=== PATIENT | male | born 1950 | race Caucasian/White ===

== ENCOUNTER 2018-09-14 13:36 | Outpatient (CLI) | payer MEDICARE, BC ==
[2018-09-14] MEDS ORDERED: CLOP75TA15 PO (23:19)
[2018-09-14] MEDS ORDERED: BENA20TA11 PO (23:22)
[2018-09-15] MEDS ORDERED: GABA-532 PO (10:11)
== END 2018-09-14 23:59 | disposition home or self-care (01) ==
LOC: VAS 13:36
PROVIDERS: ATTEND Surgery
DX: R20.0 Anesthesia of skin (principal); Z95.820 Peripheral vascular angioplasty status with implants and grafts
CPT/HCPCS: 93922; 93931

== ENCOUNTER 2019-02-08 08:27 | Day surgery (SDC) | payer MEDICARE, BC ==
[~2019-02-08] VITALS: Ht 182.9 cm; Wt 87.2 kg
[2019-02-08] VITALS (11 sets, daily range): BP systolic 106–157; BP diastolic 53–96
[~2019-02-08 08:27] MED LIST: BENA20TA11 PO; CLOP75TA15 PO; GABA-532 PO
[2019-02-08] MEDS ORDERED: normal saline 1000ml 1,000 ML IV SCH ×2 (09:05→12:12)
[2019-02-08 09:21] LABS: BASOPHILS % (AUTO) 0.8 % (0-1); EOSINOPHILS % (AUTO) 0.8 % (0-6); HEMATOCRIT 39.5 % (42.0-52.0); HEMOGLOBIN 12.5 g/dl (14.0-17.9); LYMPHOCYTES # (AUTO) 1.4 X10'3 (1.1-4.8); LYMPHOCYTES % (AUTO) 39.9 % (21-51); MEAN CORPUSCULAR HEMOGLOBIN 24.8 PG (27.0-31.0); MEAN CORPUSCULAR HGB CONC 31.7 g/dL (33.0-36.5); MEAN CORPUSCULAR VOLUME 78.2 FL (78-98); MEAN PLATELET VOLUME 7.5 FL (7.4-10.4); MONOCYTES # (AUTO) 0.3 X10'3 (0-0.9); MONOCYTES % (AUTO) 8.9 % (2-12); NEUTROPHILS # (AUTO) 1.7 X10'3 (1.8-7.7); NEUTROPHILS % (AUTO) 49.6 % (42-75); PLATELET COUNT 233 X10'3 (140-440); RED BLOOD COUNT 5.05 X10'6 (4.70-6.10); RED CELL DISTRIBUTION WIDTH 17.4 % (11.5-14.5); WHITE BLOOD COUNT 3.5 X10'3 (4.5-11.0)
[2019-02-08] MEDS ORDERED: FLU VACC QS2019-20 36MOS UP/PF 60 MCG/0.5 ML SYRINGE IMVAC ONE (09:30)
[2019-02-08 09:46] LABS: ALBUMIN 3.6 G/DL (3.4-5.0); ANION GAP 7 (8-16); BLOOD UREA NITROGEN 25 MG/DL (7-18); CALCIUM 9.2 MG/DL (8.5-10.1); CHLORIDE 107 MMOL/L (99-107); CREATININE 1.04 MG/DL (0.60-1.10); GLUCOSE 96 MG/DL (70-104); POTASSIUM 4.3 MMOL/L (3.5-5.1); SODIUM 138 MMOL/L (135-145); TOTAL CARBON DIOXIDE 23.9 MMOL/L (24-32); eGFR 71 ML/MIN
[2019-02-08] MEDS ORDERED: fentaNYL/PF 50MCG/1 ML 2ML syringe IV PRN (10:15)
[2019-02-08] MEDS ORDERED: LIDOcaine 1% (10mg/ml) 2ml vial SQ ONE (10:15)
[2019-02-08] MEDS ORDERED: heparin 1,000 UNITS/NS 500ml 500 ML ICATH ONE (10:15)
[2019-02-08] MEDS ORDERED: midazolam 2 mg/2 ml injection IV PRN (10:15)
[2019-02-08] MEDS ORDERED: LIDOcaine 1%/PF 5ML 10 MG/ML VIAL ONE (10:34)
[2019-02-08] MEDS ORDERED: iohexol 300mg/ml 100ml inj. ONE (10:34)
[2019-02-08] MEDS ORDERED: heparin 1,000 UNITS/NS 500ml 500 ML ONE (10:34)
[2019-02-08] MEDS ORDERED: fentaNYL/PF 50MCG/1 ML 2ML syringe ONE ×3 (10:40→11:37)
[2019-02-08] MEDS ORDERED: midazolam 2 mg/2 ml injection ONE ×3 (10:40→11:37)
== END 2019-02-08 18:20 | disposition home or self-care (01) ==
LOC: SSTAY O 08:27
PROVIDERS: ATTEND Radiology Diagnostic Radiology
DX: I70.211 Atherosclerosis of native arteries of extremities with intermittent claudication, right leg (principal); I10 Essential (primary) hypertension; Z87.891 Personal history of nicotine dependence; Z79.01 Long term (current) use of anticoagulants; Z79.899 Other long term (current) drug therapy; Z23 Encounter for immunization; Z82.49 Family history of ischemic heart disease and other diseases of the circulatory system
CPT/HCPCS: 36415; 37226; 80048; 85025; 85610; 99152; 99153; C1725; C1769; C1876; C1894; G0008; J1644; J2250; J3010; J7030; Q2037; Q9967; A6213

== ENCOUNTER 2021-02-12 09:56 | Day surgery (SDC) | payer MEDICARE, BC ==
[2021-02-07 14:56] LABS: BASOPHILS % (AUTO) 0.5 % (0-1); EOSINOPHILS # (AUTO) 0.1 X10'3 (0-0.9); EOSINOPHILS % (AUTO) 1.7 % (0-6); LYMPHOCYTES # (AUTO) 1.7 X10'3 (1.1-4.8); LYMPHOCYTES % (AUTO) 29.4 % (21-51); MEAN CORPUSCULAR HEMOGLOBIN 28.6 PG (27.0-31.0); MEAN CORPUSCULAR HGB CONC 32.9 g/dL (33.0-36.5); MEAN PLATELET VOLUME 8.4 FL (7.4-10.4); MONOCYTES # (AUTO) 0.5 X10'3 (0-0.9); MONOCYTES % (AUTO) 8.2 % (2-12); NEUTROPHILS # (AUTO) 3.6 X10'3 (1.8-7.7); NEUTROPHILS % (AUTO) 60.2 % (42-75); PRE OP HEMATOCRIT 45.9 % (42.0-52.0); PRE OP HEMOGLOBIN 15.1 g/dL (14.0-17.9); PRE OP PLATELET COUNT 210 X10'3 (140-440); RED BLOOD COUNT 5.27 X10'6 (4.70-6.10); RED CELL DISTRIBUTION WIDTH 14.8 % (11.5-14.5)
[2021-02-07 15:04] LABS: ALBUMIN 3.9 G/DL (3.4-5.0); ALBUMIN/GLOBULIN RATIO 1.2 (1.1-1.5); ALKALINE PHOSPHATASE 90 IU/L (46-116); BLOOD UREA NITROGEN 21 MG/DL (7-18); CALCIUM 9.1 MG/DL (8.5-10.1); CHLORIDE 106 MMOL/L (99-107); PRE OP ALT 24 U/L (30-65); PRE OP ANION GAP 5 (8-16); PRE OP AST 17 U/L (10-37); PRE OP BILIRUB, TOTAL 0.4 MG/DL (0.0-1.0); PRE OP GLUCOSE 95 MG/DL (70-104); PRE OP POTASSIUM 3.8 MMOL/L (3.4-5.1); PRE OP SODIUM 137 MMOL/L (135-145); TOTAL CARBON DIOXIDE 26.3 MMOL/L (24-32); TOTAL PROTEIN 7.1 G/DL (6.4-8.2); eGFR 50 ML/MIN
[~2021-02-12] VITALS: Ht 182.9 cm; Wt 86.0 kg
[2021-02-12] VITALS (11 sets, daily range): BP systolic 119–148; BP diastolic 75–92
[~2021-02-12 09:56] MED LIST changes: -GABA-532 PO; +cefazolin/dext.iso 2gm/50ml IV ONE; +famotidine 20mg tablet PO ONE; +ringers solution, lacted 1,000 ML IV SCH
[2021-02-12 12:17] LABS: PARTIAL THROMBOPLASTIN TIME 29 SECONDS (22-32)
[2021-02-12] MEDS ORDERED: BUPIVAcaine/PF 2.5 mg/ml (0.25%) 30ml vial ONE (14:31)
[2021-02-12] MEDS ORDERED: fentaNYL/PF 50MCG/1 ML 2ML syringe ONE ×2 (14:52→15:13)
[2021-02-12] MEDS ORDERED: midazolam 1 mg/ML 2ml injection ONE (14:53)
[2021-02-12] MEDS ORDERED: propofol inj 20 ML IV ONE (14:53)
[2021-02-12] MEDS ORDERED: rocuronium 10mg/ml inj IV ONE (14:53)
[2021-02-12] MEDS ORDERED: ondansetron/PF 4mg/2ml inj ONE (15:40)
[2021-02-12] MEDS ORDERED: dexamethasone sod phosphate 4mg/ml inj. ONE (15:41)
[2021-02-12] MEDS ORDERED: acetaminophen 1,000mg/100ml IV 100 ML IV ONE (15:41)
[2021-02-12] MEDS ORDERED: glycopyrrolate 0.2mg/ml inj ONE (15:54)
[2021-02-12] MEDS ORDERED: neostigmine methylsulfate 1 MG/ML 10ml vial ONE (15:54)
--- NOTE | 2021-02-12 16:00 | NUR ---
Received from OR via , accompanied by Anesthesiologist DR ESPITIA and report given by Anesthesiolgist. PT PRESENTS WITH 20G RIGHT HAND, ABD DRESSING DRY AND INTACT, VSS. Addendum: 02/12/21 at 1612 by Shelley Donaldson RN, RN Amended: Links added.
[2021-02-12] MEDS ORDERED: meperidine/PF 25mg/ml syringe ONE (16:02)
[2021-02-12] MEDS ORDERED: ringers solution, lacted 1,000 ML IV SCH (16:05)
[2021-02-12] MEDS ORDERED: morphine 2 MG/ML inj. syringe IV PRN (16:05)
[2021-02-12] MEDS ORDERED: ondansetron/PF 4mg/2ml inj IV PRN (16:05)
[2021-02-12] MEDS ORDERED: morphine 4 MG/ML inj SYRINge IV PRN (16:05)
[2021-02-12] MEDS ORDERED: meperidine/PF 25mg/ml syringe IV PRN ×3 (16:05)
[2021-02-12] MEDS ORDERED: proCHLORperazine 10 MG/2 ml inj IV PRN (16:05)
[2021-02-12] MEDS ORDERED: HYDROcodone/acetaminophen 10/325mg tab PO ONE (17:10)
--- NOTE | 2021-02-12 17:30 | NUR ---
PT EVALUATED AND TREATED FOR HERNIA REPAIR. DC INSTRUCITONS REVIEWED WITH PT, PT VERBLAIZED UDNERSTANDING WITH NO FURTHER QUESTIONS AT THIS TIME. PT WHEELED DOWN TO LOBBY WHERE PT'S FAMILY MEMBER RACHEL WAS THERE TO PICK PT UP AND TAKE HIME HOME. PT ADVISED TO STOP AT PHARMACY AND [facility]. Addendum: 02/12/21 at 1750 by Shelley Donaldson RN, RN Amended: Links added.
== END 2021-02-12 17:30 | disposition home or self-care (01) ==
LOC: PAS 09:56
PROVIDERS: ATTEND Surgery
DX: K40.90 Unilateral inguinal hernia, without obstruction or gangrene, not specified as recurrent (principal); D17.6 Benign lipomatous neoplasm of spermatic cord; M19.90 Unspecified osteoarthritis, unspecified site; I10 Essential (primary) hypertension; Z20.822 Contact with and (suspected) exposure to COVID-19; Z79.899 Other long term (current) drug therapy; Z79.01 Long term (current) use of anticoagulants; Z98.890 Other specified postprocedural states; Z87.891 Personal history of nicotine dependence; Z86.718 Personal history of other venous thrombosis and embolism
CPT/HCPCS: 36415; 49650; 80053; 82948; 85025; 85610; 85730; 93005; C1758; C1781; J0131; J1100; J2175; J2250; J2405; J2704; J2710; J3010; J3490; U0003; U0005; Z7506; Z7508; Z7512; A4215; A4618; J7120